=== PATIENT | female | born 1960 | race Caucasian/White ===

== ENCOUNTER 2020-09-10 01:12 | Emergency (ER) | payer SELFPAY ==
[~2020-09-10] VITALS: Ht 165.1 cm; Wt 68.3 kg
--- NOTE | 2020-09-10 01:24 | NUR ---
THIS IS A 59F BIB EMS FROM HOME FOR NEW ONSET SZ LIKE ACTIVITY. PER PT WAS IN BATHROOM AND FELL, WHEN HE MADE HIS WAY IN, PT WAS LAYING ON FLOOR TWITCHING. PER PT DOES NOT REMEMBER EVENT OR EVENTS PRIOR. UPON EMS ARRIVAL PT WAS A/O X2. UPON ARRIVAL TO ED, PT A/OX4 INTERACTING WITH STAFF. PIV INSERTED RESIDENTIAL AIR SEALING TECHNICIAN AND GIVEN 4MG ZOFRAN. PT CONNECTED TO ALL MONITORING VSS, AT BEDSIDE FOR SUPPORT. EKG DONE, PROVIDER AT BEDSIDE FOR EVAL
[2020-09-10] MEDS ORDERED: LORazepam 2 MG/ML, 1ML IVPush ONE (01:30)
[2020-09-10] MEDS ORDERED: SODIUM CHLORIDE FLUSH 10ML SYR IVF ONE (01:30)
[2020-09-10] MEDS ORDERED: LORazepam 2 MG/ML, 1ML ONE (01:37)
--- NOTE | 2020-09-10 01:40 | NUR ---
PT MEDIATED PER MAR
[2020-09-10 01:49] LABS: BASOPHILS % (AUTO) 1 % (0-1); EOSINOPHILS % (AUTO) 1 % (1-7); LYMPHOCYTES % (AUTO) 21 % (22-44); MEAN CORPUSCULAR HEMOGLOBIN 31.3 pg (27.0-34.8); MEAN CORPUSCULAR HGB CONC 33.9 g/dL (32.4-35.8); MEAN PLATELET VOLUME 7.7 fL (7.4-10.4); MONOCYTES % (AUTO) 7 % (2-9); NEUTROPHILS % (AUTO) 70 % (42-75); PLATELET COUNT 260 x10^3/uL (130-400); RED BLOOD COUNT 4.38 x10^6/uL (3.82-5.3); RED CELL DISTRIBUTION WIDTH 12.8 % (9.6-15.2)
[2020-09-10 02:02] LABS: ALANINE AMINOTRANSFERASE 32 U/L (12-78); ALBUMIN 3.5 g/dL (3.4-5.0); ANION GAP 5 mmol/L (5-15); CALCIUM 8.6 mg/dL (8.5-10.1); CHLORIDE 107 mmol/L (98-107); CREATININE 0.93 mg/dL (0.55-1.02)
[2020-09-10 02:04] LABS: ALKALINE PHOSPHATASE 55 U/L (45-117); BILIRUBIN,TOTAL 0.4 mg/dL (0.2-1.0); TOTAL PROTEIN 7.5 g/dL (6.4-8.2)
--- NOTE | 2020-09-10 02:04 | NUR ---
PT TO CT
[2020-09-10 03:26] VITALS: BP 127/77
--- NOTE | 2020-09-10 03:27 | NUR ---
PT RESTING ON [facility]I CARTAGENA AT THIS TIME
[2020-09-10] MEDS ORDERED: LORazepam 1MG TABLET ONE (03:51)
--- NOTE | 2020-09-10 03:58 | NUR ---
Patient/Caregiver given discharge instructions and they have confirmed that they understand the instructions. Patient ambulatory with steady gait. NAD, all questions answered appropriately, denies additional needs at this time. No personal belongings left in room after discharge.
[2020-09-10] MEDS ORDERED: LORazepam 1MG TABLET PO ONE (04:00)
== END 2020-09-10 04:08 | disposition home or self-care (01) ==
LOC: EDSEX 01:12 → ED 04:05
DX: G40.309 Generalized idiopathic epilepsy and epileptic syndromes, not intractable, without status epilepticus (principal); I10 Essential (primary) hypertension
CPT/HCPCS: 36415; 70450; 80053; 80320; 85025; 93005; 96374; 99285; J2060; G0480